=== PATIENT | female | born 1940 | race African-American/Black ===

== ENCOUNTER 2022-02-09 16:40 | Emergency (ER) | payer SELFPAY ==
[~2022-02-09] VITALS: Ht 165.1 cm; Wt 67.5 kg
[2022-02-09 17:50] LABS: BASOPHILS % 0.5 % (0.0-2.0); EOSINOPHILS % 0.4 % (0.0-5.0); HEMATOCRIT. 38.7 % (36.0-48.0); HEMOGLOBIN. 13.2 g/dL (12.0-16.0); LYMPHOCYTES % 19.1 % (20.0-50.0); MEAN CORPUSCULAR HEMOGLOBIN 30.7 pg (28.0-32.0); MEAN CORPUSCULAR VOLUME 89.9 fL (81.0-99.0); MEAN PLATELET VOLUME 10.5 fl (7.4-10.4); MONOCYTES % 3.4 % (2.0-8.0); NEUTROPHILS % 76.6 % (40.0-76.0); PLATELET 182 x1000/uL (130-400); RED BLOOD CELL COUNT 4.31 mill/uL (4.2-5.4); RED CELL DISTRIBUTION WIDTH 14.3 % (11.6-14.6)
[2022-02-09 17:59] LABS: INR 1.1; PROTHROMBIN TIME 11.3 sec (9.6-11.0)
[2022-02-09 18:00] LABS: CHLORIDE 109 mEq/L (98-107)
[2022-02-09] MEDS ORDERED: POTASSIUM CHLORIDE 20MEQ/PACKET PO ONE (20:15)
[2022-02-09 20:25] VITALS: BP 145/88
== END 2022-02-09 20:48 | disposition home or self-care (01) ==
LOC: ER 16:40
DX: R42 Dizziness and giddiness (principal)
CPT/HCPCS: 36415; 80053; 84484; 85025; 93005; 99284